=== PATIENT | female | born 1960 | race Caucasian/White ===

== ENCOUNTER 2018-02-18 05:45 | Emergency (ER) | payer OTHER ==
[2018-02-18] MEDS: IPRATROPIUM/ALBUTEROL (0.5MG/3MG) NEB INH ONE (06:17)
[2018-02-18 06:32] LABS: INFLUENZA A NEGATIVE (NEGATIVE); INFLUENZA B NEGATIVE (NEGATIVE)
--- NOTE | 2018-02-18 06:48 | Emergency Department Record ---
History of Present Illness - General Chief Complaint: Cough Stated Complaint: COUGH/FEVER Time Seen by Provider: 02/18/18 06:03 Source: Patient Mode of Arrival: Ambulatory Limitations: No limitations - History of Present Illness Initial Comments: pt has been sick all week with coughing, fevers, sweats and chills MD Complaint: Cough, Fever, Nasal congestion, Rhinorrhea Onset/Timin -: Days(s) Severity: Moderate Consistency: Getting worse Improves With: Nothing Worsens With: Nothing Context: Sick contacts Associated Symptoms: Chills, Fever, Nasal congestion, Rhinorrhea, Shortness of breath - Related Data Home Medications Medication Instructions Recorded Confirmed Last Taken Duloxetine HCl [Cymbalta] 30 mg PO DAILY 02/18/18 02/18/18 02/17/18 Metoprolol Succinate [Toprol Xl] 100 mg PO DAILY 02/18/18 02/18/18 02/17/18 Previous Rx's Medication Instructions Recorded Amoxicillin/Potassium Clav 1 tab PO BID #20 tab 02/18/18 [Augmentin 875-125 Tablet] Allergies Allergy/AdvReac Type Severity Reaction Status Date / Time No Known Drug Allergies Allergy Verified 02/18/18 05:58 Travel Screening - Travel/Exposure Within Last 30 Days Have you traveled within the last 30 days?: No - Travel Symptoms Symptom Screening: Fever (Subjective) Review of Systems Reviewed: No additional complaints except as noted below Constitutional: Reports: As per HPI, Chills, Fever. Denies: Malaise, Night sweats, Weakness, Weight change Eyes: Reports: As per HPI. Denies: Eye discharge, Eye pain, Photophobia, Vision change ENT: Reports: As per HPI, Congestion. Denies: Dental pain, Ear pain, Epistaxis , Hearing loss, Throat pain Respiratory: Reports: As per HPI, Cough. Denies: Dyspnea, Hemoptysis, Stridor, Wheezes Cardiovascular: Reports: As per HPI. Denies: Arrhythmia, Chest pain, Dyspnea on exertion, Edema, Murmurs, Orthopnea, Palpitations, Paroxysmal nocturnal dyspnea, Rheumatic Fever, Syncope Endocrine: Reports: As per HPI. Denies: Fatigue, Heat or cold intolerance, Polydipsia, Polyuria Gastrointestinal: Reports: As per HPI. Denies: Abdominal pain, Constipation, Diarrhea, Hematemesis, Hematochezia, Melena, Nausea, Vomiting Genitourinary: Reports: As per HPI. Denies: Abnormal menses, Discharge, Dyspareunia, Dysuria, Frequency, Hematuria, Incontinence, Retention, Urgency Musculoskeletal: Reports: As per HPI. Denies: Arthralgia, Back pain, Gout, Joint swelling, Myalgia, Neck pain Skin: Reports: As per HPI. Denies: Bruising, Change in color, Change in hair/ nails, Lesions, Pruritus, Rash Neurological: Reports: As per HPI. Denies: Abnormal gait, Confusion, Headache, Numbness, Paresthesias, Seizure, Tingling, Tremors, Vertigo, Weakness Psychiatric: Reports: As per HPI. Denies: Anxiety, Auditory hallucinations, Depression, Homicidal thoughts, Suicidal thoughts, Visual hallucinations Hematological/Lymphatic: Reports: As per HPI. Denies: Anemia, Blood Clots, Easy bleeding, Easy bruising, Swollen glands Past Medical History - SOCIAL HISTORY Smoking Status: Former smoker Alcohol Use: Rare Drug Use: None - RESPIRATORY Hx Respiratory Disorders: No - CARDIOVASCULAR Hx Cardio Disorders: No - NEURO Hx Neuro Disorders: No - GI Hx GI Disorders: No - Hx Genitourinary Disorders: No - ENDOCRINE Hx Endocrine Disorders: No - MUSCULOSKELETAL Hx Musculoskeletal Disorders: No - PSYCH Hx Psych Problems: No - HEMATOLOGY/ONCOLOGY Hx Hematology/Oncology Disorders: No Family Medical History Any Significant Family History?: Yes Hx HTN: Mother Physical Exam - General General Appearance: Alert, Oriented x3, Cooperative, Mild distress - Head Head exam: Normal inspection - Eye Eye exam: Normal appearance, PERRL, EOMI Pupils: Normal accommodation - ENT ENT exam: Normal exam, Mucous membranes moist, Normal external ear exam, Normal orophraynx, TM's normal bilaterally Ear exam: Normal external inspection. negative: External canal tenderness Nasal Exam: Normal inspection. negative: Discharge, Sinus tenderness Mouth exam: Normal external inspection, Tongue normal Teeth exam: Normal inspection. negative: Dental caries Throat exam: Normal inspection. negative: Tonsillar erythema, Tonsillar exudate - Neck Neck exam: Normal inspection, Full ROM. negative: Tenderness - Respiratory Respiratory exam: Rales, Respiratory distress, Wheezes - Cardiovascular Cardiovascular Exam: Regular rate, Normal rhythm, Normal heart sounds - GI/Abdominal GI/Abdominal exam: Soft, Normal bowel sounds. negative: Tenderness - Rectal Rectal exam: Deferred - exam: Deferred - Extremities Extremities exam: Normal inspection, Full ROM, Normal capillary refill. negative: Tenderness - Back Back exam: Reports: Normal inspection, Full ROM. Denies: Muscle spasm, Rash noted, Tenderness - Neurological Neurological exam: Alert, Normal gait, Oriented X3, Reflexes normal - Psychiatric Psychiatric exam: Normal affect, Normal mood - Skin Skin exam: Dry, Intact, Normal color, Warm Course Vital Signs 02/18/18 02/18/18 05:52 06:18 Temperature 98.1 F Pulse Rate 76 Pulse Rate [ 86 Pulse Ox Probe] Respiratory 20 16 Rate Blood Pressure 138/80 [Left Arm] Pulse Ox 90 L Medical Decision Making - Lab Data Lab Results 02/18/18 Range/Units 06:32 Influenza Type A Ag Negative (NEGATIVE) Influenza Type B Ag Negative (NEGATIVE) Disposition Disposition: Discharge Clinical Impression: Bilateral pneumonia Qualifiers: Pneumonia type: due to unspecified organism Lung location: lower lobe of lung Qualified Code(s): J18.1 - Lobar pneumonia, unspecified organism Disposition: Home, Self-Care Condition: (1) Good Instructions: Bacterial Pneumonia (ED) Additional Instructions: follow up with family doctor tomorrow. return sooner if worse. proventil inhaler 2 puffs every 3-4 hrs as needed. incentive spirometry as taught Prescriptions: Amoxicillin/Potassium Clav [Augmentin 875-125 Tablet] 1 tab PO BID #20 tab Quality - Quality Measures Quality Measures: N/A - Blood Pressure Screening Does Patient Have Any of the Following: No Blood Pressure Classification: Pre-Hypertensive BP Reading Systolic Measurement: 138 Diastolic Measurement: 80 Screening for High Blood Pressure: < Pre-Hypertensive BP, F/U Documented > [ [id number]] Pre-Hypertensive Follow-up Interventions: Follow-up with rescreen every year.
[2018-02-18] MEDS: AMOXICILLIN/POTASSIUM CLAV 875MG/125MG TABLET PO ONE (07:07)
[2018-02-18] MEDS: ALBUTEROL HFA 8 GM INHALER INH PRN (07:08)
--- NOTE | 2018-02-18 14:10 | RADIOLOGY REPORT ---
EXAM: CHEST, TWO VIEWS HISTORY: DIFFICULTY IN BREATHING. TECHNIQUE: Frontal and lateral views of the chest were performed. Comparison: 07/10/12. FINDINGS: The heart size is normal. No pulmonary vascular congestion. Subtle infiltrate right lower lobe. Follow-up until resolution is recommended. IMPRESSION: SUBTLE INFILTRATE RIGHT LOWER LOBE. FOLLOW-UP UNTIL RESOLUTION IS RECOMMENDED. JOB NUMBER: [id number] MTDD
== END 2018-02-18 07:14 | disposition home or self-care (01) ==
LOC: ER 05:45
DX: J18.1 Lobar pneumonia, unspecified organism (principal); R06.00 Dyspnea, unspecified; Z87.891 Personal history of nicotine dependence
CPT/HCPCS: 71046; 87400; 94010; 94640; 94664; 99283; 99284